=== PATIENT | male | born 1965 ===

== ENCOUNTER 2021-03-02 21:23 | Day surgery (SDC) | payer SELFPAY ==
[2021-03-02] MEDS ORDERED: Morphine 4 MG/ML VIAL ONE ×2 (21:31→21:45)
[2021-03-02] MEDS ORDERED: Boostrix 0.5 ML (Tdap) VIAL ONE (21:45)
[2021-03-02] MEDS ORDERED: CEFAZOLIN 1 GM VIAL ONE (21:45)
[2021-03-02] MEDS ORDERED: Fentanyl 100 MCG/2 ML VIAL ONE ×2 (22:12→22:25)
[2021-03-02 22:19] LABS: Hemoglobin 11.9 g/dL (14.0-18.0); Mean Corpuscular HGB CONC 31.7 g/dL (32.0-36.0); Mean Corpuscular Hemoglobin 20.9 pg (27.0-31.0); RBC Distribution Width 20.5 % (11.5-14.5); Red Blood Cell (RBC) Count 5.68 mill/uL (4.70-6.10); White Blood Cell (WBC) Count 6.2 thou/uL (4.8-10.8)
[2021-03-02] MEDS ORDERED: Protamine Sulfate 50 MG/5 ML VIAL ONE (22:19)
[2021-03-02] MEDS ORDERED: Heparin 10,000 UNITS/ 10 ML VIAL ONE (22:19)
[2021-03-02] MEDS ORDERED: Heparin 5,000 UNITS/ML VIAL ONE (22:19)
[2021-03-02 22:30] LABS: INR-International Normal Ratio 1.2; PTT 24.5 sec (22.9-36.1); Prothrombin Time 15.4 sec (12.0-14.7)
[2021-03-02 22:35] LABS: #Lymphocytes 1.1 thou/uL (1.20-3.40); #Monocytes 0.4 thou/uL (0.11-0.59); #Neutrophils 4.6 thou/uL (1.40-6.50); %Basophils 0.2 % (0.0-1.0); %Eosinophils 0.4 % (0.0-10.0); %Lymphocytes 18.2 % (21.0-51.0); %Monocytes 6.8 % (0.0-10.0); %Neutrophils 74.4 % (42.0-75.0); Anisocytosis SLIGHT = 6-15 cells (100X) (0-5/hpf); Hypochromia SLIGHT = 6-15 cells (100X) (0-5/hpf); MDiff Complete? YES; Mean Platelet Volume 6.9 fL (7.4-10.4); Microcytosis SLIGHT = 6-15 cells (100X) (0-5/hpf); Platelet Count 109 thou/uL (130-400); Platelet Morphology Comment Appears Decreased; Tear Drops SLIGHT = 2-5 cells (100X) (0-1/hpf)
[2021-03-02] MEDS ORDERED: Lidocaine 1% PF 5 ML VIAL ONE (22:49)
[2021-03-02] MEDS ORDERED: Rocuronium Bromide 10 MG/ML (10ML VIAL) ONE (22:49)
[2021-03-02] MEDS ORDERED: Dexamethasone 20 MG/5 ML VIAL ONE (22:49)
[2021-03-02] MEDS ORDERED: PROPOFOL 200 MG/20 ML VIAL ONE (22:49)
[2021-03-02] MEDS ORDERED: Ondansetron PF 4 MG/2 ML Vial ONE (22:49)
[2021-03-02] MEDS ORDERED: Ondansetron PF 4 MG/2 ML Vial IVP PRN (22:54)
[2021-03-02] MEDS ORDERED: Dextrose 5% in Water 1,000 ML IV PRN (22:54)
[2021-03-02] MEDS ORDERED: Morphine 4 MG/ML VIAL SLOW IVP PRN ×2 (22:54→23:02)
[2021-03-02] MEDS ORDERED: Dextrose 50% Abboject 50 ML SYRINGE SLOW IVP PRN (22:54)
[2021-03-02] MEDS ORDERED: hydrALAZINE 20 MG/ML VIAL SLOW IVP PRN (22:54)
[2021-03-02] MEDS ORDERED: Cyclobenzaprine 10 MG TAB PO PRN (22:57)
[2021-03-02] MEDS ORDERED: Sodium Chloride 0.9% 1,000 ML IV SCH (23:00)
[2021-03-02 23:03] LABS: SARS-CoV-2 NAA Rapid Test Not Detected (NotDetected)
[2021-03-02 23:05] LABS: ALT (SGPT) 72 U/L (8-55); AST (SGOT) 61 U/L (5-34); Albumin 3.8 g/dL (3.5-5.0); Alkaline Phosphatase 68 U/L (40-110); Anion Gap 15 mmol/L (10-20); BUN (Urea Nitrogen) 18 mg/dL (8.4-25.7); Bilirubin, Total 1.4 mg/dL (0.2-1.2); Calc. Creatinine Clearance 0 mL/min (70-130); Calcium 8.5 mg/dL (7.8-10.44); Carbon Dioxide 19 mmol/L (22-29); Chloride 109 mmol/L (98-107); Globulin 4.1 g/dL (2.4-3.5); Glucose 160 mg/dL (70-105); Potassium 3.7 mmol/L (3.5-5.1); Protein, Total 7.9 g/dL (6.0-8.3); Sodium 139 mmol/L (136-145)
[2021-03-02] MEDS ORDERED: SUGAMMADEX SODIUM 200 MG/2 ML VIAL ONE (23:20)
[2021-03-02] MEDS ORDERED: Bacitracin Zinc Ointment 30 gm TUBE ONE (23:27)
[2021-03-02] MEDS ORDERED: ceFAZolin 1 GM/D5W 1 GM in Premix Bag 1 BAG IVPB SCH (23:30)
[2021-03-02] MEDS ORDERED: Acetaminophen 500 MG TAB PO SCH (23:59)
[2021-03-02] MEDS ORDERED: Ketorolac Tromethamine 30 MG/ML VIAL IVP SCH (23:59)
[2021-03-02] MEDS ORDERED: traMADol HCl 50 MG TAB PO SCH (23:59)
[2021-03-03] MEDS ORDERED: Fentanyl 100 MCG/2 ML VIAL ONE (00:11)
[2021-03-03] MEDS ORDERED: HYDROcodone/Acetaminophen 5/325 mg Tablet ONE (00:24)
[2021-03-03] MEDS ORDERED: Famotidine 20 MG TAB PO SCH (09:00)
[2021-03-03] MEDS ORDERED: Senokot S 8.6-50 MG TAB PO SCH (09:00)
[2021-03-03] MEDS ORDERED: Polyethylene Glycol 3350 17 GM Packet PO SCH (09:00)
[2021-03-03] MEDS ORDERED: Gabapentin 300 MG CAP PO SCH (09:00)
== END 2021-03-03 02:22 ==
LOC: ERS 21:23 → SDC/OP 22:38
PROVIDERS: ATTEND Thoracic Surgery (Cardiothoracic Vascular Surgery)
PROC: 0JJV0ZZ Inspection of Upper Extremity Subcutaneous Tissue and Fascia, Open Approach (ICD-10-PCS; principal; 2021-03-03)
PROC: 0JQH0ZZ Repair Left Lower Arm Subcutaneous Tissue and Fascia, Open Approach (ICD-10-PCS; principal; 2021-03-03)
DX: S55.212A Laceration of vein at forearm level, left arm, initial encounter (principal); S51.012A Laceration without foreign body of left elbow, initial encounter; I10 Essential (primary) hypertension; K21.9 Gastro-esophageal reflux disease without esophagitis; Z20.822 Contact with and (suspected) exposure to COVID-19; Z87.891 Personal history of nicotine dependence; X78.8XXA Intentional self-harm by other sharp object, initial encounter
CPT/HCPCS: 36415; 86850; 86900; 86901; 90715; 93005; G0390; J0690; J1100; J1644; J2270; J2405; J2704; J2720; J3010; J7050; U0002